=== PATIENT | female | born 2000 | race Caucasian/White ===

== ENCOUNTER 2019-10-31 02:30 | Inpatient (IN) | payer OTHER ==
[~2019-10-31 02:30] MED LIST: DEXTROSE 5%-LACTATED RINGERS 1,000 ML IV SCH
[2019-10-31] MEDS ORDERED: AMPICILLIN - 2 GM in SODIUM CHLORIDE 100 ML IVPB ONE (03:00)
[2019-10-31] MEDS: ELECTROLYTE-148 SOLN 1,000 ML IV SCH ×2 (03:10→09:15)
[2019-10-31 04:19] LABS: BASO % 0.5 % (0-2.0); HEMATOCRIT 36.7 % (32.4-45.2); HEMOGLOBIN 12.4 GM/dL (10.7-15.3); LYMPH % 17.2 % (8-40); MCHC 33.8 g/dl (32.0-36.0); MEAN CELL VOLUME 97.6 fl (80-96); MEAN PLT VOLUME 9.9 fl (7.5-11.1); MONO % 7.3 % (3.8-10.2); PLATELET COUNT 182 K/MM3 (134-434); RBC 3.77 M/mm3 (3.60-5.2); WHITE BLOOD COUNT 10.4 K/mm3 (4.0-10.0)
[2019-10-31 04:25] LABS: INR 0.92 (0.83-1.09); PROTHROMBIN TIME (PATIENT) 10.9 SEC (9.7-13.0)
[2019-10-31 04:36] LABS: BLOOD UREA NITROGEN 10.2 mg/dL (7-18); CALCIUM 8.9 mg/dL (8.5-10.1); CREATININE 0.4 mg/dL (0.55-1.3); POTASSIUM 5.4 mmol/L (3.5-5.1)
[2019-10-31] MEDS ORDERED: AMPICILLIN SODIUM 2 GM VIAL ONE (05:54)
[2019-10-31 06:05] LABS: PLATELET ESTIMATE ADEQUATE
[2019-10-31 06:13] VITALS: BMI 28.3
[2019-10-31] MEDS ORDERED: AMPICILLIN - 1 GM in SODIUM CHLORIDE 100 ML IVPB SCH (07:00)
[2019-10-31] MEDS ORDERED: BUTORPHANOL TARTRATE 2 MG/ML VIAL IVPB ONE (07:30)
[2019-10-31] MEDS ORDERED: PROMETHAZINE HCL 25 MG/1 ML VIAL IVPB ONE (07:30)
[2019-10-31] MEDS ORDERED: BUTORPHANOL TARTRATE 1 MG/ML VIAL ONE ×2 (08:10→08:11)
[2019-10-31] MEDS ORDERED: PROMETHAZINE HCL 25 MG/1 ML VIAL ONE (08:12)
[2019-10-31] MEDS ORDERED: OXYTOCIN 30 UNITS in 0.9% NS 30 UNIT/500 ML INFUS.BAG IVPB ONE (08:33)
[2019-10-31] MEDS: OXYTOCIN 30 UNITS in 0.9% NS 30 UNIT/500 ML INFUS.BAG IVPB SCH (08:40)
--- NOTE | 2019-10-31 08:42 | CONSULT ---
Past Medical History, Laborist - Primary Care Physician PCP:: Nitesh Lanier - Admission Chief Complaint: PROM. Early labor. History of Present Illness: PROM at 1 am. Some ctx. Was 1 cm. on admission. First baby. Just got Stadol. Needs augmentation. History Source: Patient, Family Member Limitations to Obtaining History: Language Barrier - Past Medical History SPANISH SPEAKING NANNY: Denies/None Cardio/Vascular: Denies/None Pulmonary: Denies/None Gastrointestinal: Denies/None Hepatobiliary: Denies/None Renal/: Denies/None Reproductive: Denies/None ...: 1 ...Para: 0 ...EDC by Sono: 10/31/19 Heme/Onc: Denies/None Infectious Disease: Denies/None Psych: Denies/None Musculoskeletal: Denies/None Rheumatology: Denies/None ENT: Denies/None Endocrine: Denies/None Dermatology: Denies/None - Past Surgical History Past Surgical History: Yes: None - Smoking History Smoking history: Never smoked Have you smoked in the past 12 months: No - Alcohol/Substance Use Hx Alcohol Use: No - Social History Usual Living Arrangement: With Significant Other Review of Systems - Review of Systems Constitutional: denies: No Symptoms, Chills, Diaphoresis, Fever, Lethargy, Loss of Appetite, Malaise, Night Sweats, Unintentional Wgt. Loss, Weakness, Other Eyes: denies: No Symptoms, Blind Spots, Blurred Vision, Double Vision, Eye Pain , Floaters, Photophobia, Recent Change in Vision, Other HENT: denies: No Symptoms, Difficult Swallowing, Ear Discharge, Ear Pain, Epistaxis, Gingival Bleeding, Hearing Loss, Mouth Swelling, Nasal Congestion, Ocular Prosthesis, Throat Pain, Toothache, Ringing in Ears, Other Neck: denies: No Symptoms, Decreased ROM, Lumps, Pain on Movement, Stiffness, Swollen Glands, Tenderness, Other Cardiovascular: denies: No Symptoms, Chest Pain, Edema, Palpitations, Shortness of Breath, Other Respiratory: denies: No Symptoms, Cough, Exercise Intolerance, Hemoptysis, Orthopnea, PND, Snoring, SOB, SOB on Exertion, Wheezing, Other Gastrointestinal: denies: No Symptoms, Abdominal Pain, Bloating, Constipation, Diarrhea, Dysphagia, Indigestion, Melena, Nausea, Rectal Bleeding, Vomiting, Vomiting Blood, Other Genitourinary: denies: No Symptoms, Burning, Discharge, Dysuria, Flank Pain, Frequency, Hematuria, Incontinence, Lesions, Menses, Pain, Testicular Mass, Testicular Pain, Testicular Swelling, Urgency, Vaginal Bleeding, Other Breasts: denies: No Symptoms Reported, See HPI, Breast Implants, Discharge from Nipple, Lumps, Pain, Skin Changes, Other Musculoskeletal: denies: No Symptoms, Back Pain, Crepitus, Decreased ROM, Extremity Pain, Joint Pain, Joint Swelling, Muscle Pain, Muscle Cramps, Muscle Weakness, Other Neurological: denies: No Symptoms, Change in LOC, Change in Speech, Confusion, Dizziness, Headache, Incoordination, Numbness, Parasthesia, Pre-Existing Deficit , Seizure, Syncope, Tremors, Unsteady Gait, Weakness, Other Endocrine: denies: No Symptoms, Excessive Sweating, Flushing, Increased Hunger, Increased Thirst, Intolerance to Cold, Intolerance to Heat, Unexplained Weight Gain, Unexplained Weight Loss, Other Hematology/Lymphatic: denies: No Symptoms, Easily Bruised, Excessive Bleeding, Swollen Glands, Other Psychiatric: denies: No Symptoms, Altered Sleep Pattern, Anxiety, Depression, Hallucinations, Panic, Paranoia, Suicidal, Other Physical Exam - Maternity Vital Signs: Vital Signs Temperature 97.9 F 10/31/19 08:00 Pulse Rate 86 10/31/19 08:00 Respiratory Rate 18 10/31/19 08:00 Blood Pressure 127/75 10/31/19 08:00 O2 Sat by Pulse Oximetry (%) Constitutional: Yes: Well Nourished, No Distress, Calm Eyes: Yes: WNL, Conjunctiva Clear, EOM Intact HENT: Yes: WNL, Atraumatic, Normocephalic Neck: Yes: WNL, Supple, Trachea Midline Cardiovascular: Yes: WNL, Regular Rate and Rhythm Breast(s): Yes: WNL - Abdominal Exam/OB Fundal Height: 38 Number of Fetuses: Single Presentation: Vertex Contractions: Yes Regularity: Irregular Intensity: Mild/Mod Monitor Mode: External Heart Rate Location: [facility] Category: I Accelerations: Uniform - Vaginal Exam/OB Vaginal Bleediing: No Speculum Exam: No Dilatation (cm): 3-4 Effacement (%): 50 Amniotic Membrane Status: Ruptured Amniotic Fluid: Yes: Clear Presentation: Vertex/Position Station: -2 - Physical Exam Edema: No - Labs Lab Results: CBC, BMP 10/31/19 03:35 10/31/19 00:35 Problem List - Problems (1) Term Code(s): Z34.90 - ENCNTR FOR SUPRVSN OF NORMAL , UNSP, UNSP TRIMESTER (2) PROM (premature rupture of membranes) Code(s): O42.90 - MUSTAPHA ROM, 7TH0 BETW RUPT & ONST LABR, UNSP WEEKS OF GEST Assessment/Plan at term. 40w 0d. PROM. GBS pos., on Ampicillin prophylaxis. Mild, irregular ctx. Needs augmentation. Explained to the pt and family. Will start Pitocin.
[2019-10-31] MEDS ORDERED: AMPICILLIN SODIUM 1 GM VIAL ONE ×3 (09:54→17:57)
[2019-10-31] MEDS: AMPICILLIN - 1 GM in SODIUM CHLORIDE 100 ML IVPB SCH ×3 (10:00→18:00)
[2019-10-31] MEDS ORDERED: FENTANYL/BUPIVACAINE/NS/PF - PCEA - 50 ML DISP.SYRIN EP ONE ×3 (10:47→19:54)
--- NOTE | 2019-10-31 10:51 | PN ---
Progress Note, Labor Vaginal Exam #2 Labor Exam Date: 10/31/19 Dilatation: 4-5 Effacement (%): 50 Station: -2 Remarks: Epidural requested, explained.
[2019-10-31 12:16] LABS: POC NITRAZINE POS
[2019-10-31] MEDS ORDERED: NALOXONE HCL 0.4 MG/ML VIAL IVPUSH PRN (12:56)
[2019-10-31] MEDS ORDERED: FENTANYL/BUPIVACAINE/NS/PF - PCEA - 50 ML DISP.SYRIN EP SCH (13:00)
[2019-10-31] MEDS: FENTANYL/BUPIVACAINE/NS/PF - PCEA - 50 ML DISP.SYRIN EP SCH (14:19)
[2019-10-31] MEDS ORDERED: BUPIVACAINE HCL/PF 2.5 MG/ML - 30 ML VIAL IJ ONE (15:17)
--- NOTE | 2019-10-31 17:16 | HP ---
Past Medical History - Admission Chief Complaint: srom in labor History of Present Illness: none History Source: Patient Limitations to Obtaining History: No Limitations - Past Medical History HOROLOGIST: No: Alzheimer's, CVA, Dementia, Migraine, Multiple Sclerosis, Peripheral Neuropathy, Parkinson's, Seizure, Syncope, TIA, Vertigo, Other Cardiovascular: No: AFIB, Aneurysm, Aortic Insufficiency, Aortic Stenosis, CAD, CHF, Deep Vein Thrombosis, HTN, Hyperlipdemia, ND, Mitral Insufficiency, Mitral Stenosis, Murmur, Pulmonary Hypertension, Other Pulmonary: No: Asthma, Bronchitis, Cancer, COPD, O2 Dependent, Pneumonia, Previously Intubated, Pulmonary Embolus, Pulmonary Fibrosis, Sleep Apnea, Other Gastrointestinal: No: Ascites, Cancer, Constipation, Crohn's Disease, Diverticulitis, Diverticulosis, Esophageal Varices, Gastritis, GERD, GI Bleed, Hemorrhoids, Hiatal Hernia, Inflamatory Bowel Disease, Irritable Bowel Disease, Pancreatitis, Peptic Ulcer Disease, Ulcerative Colitis, Other Renal/: No: Renal Failure, Renal Inusuff, BPH, Cancer, Hematuria, Hemodialysis , Neurogenic Bladder, Renal Calculi, UTI, Other Reproductive: No: Ectopic , Endometriosis, Fibroids, PID, Polycystic Ovary Syndrome, Postmenopausal, Other ...: 1 ...Para: 0 ... Weeks Gestation by Dates: 40 ...EDC by Sasha: 10/31/19 Heme/Onc: No: Anemia, B12 Deficiency, Bleeding Disorder, Cancer, Current Chemotherapy, Current Radiation Therapy, Hemochromatosis, Hypercoaguable State, Myeloproliferative Synd, Sickle Cell Disease, Sickle Cell Trait, Thrombocytopenia, Other Infectious Disease: No: AIDS, C-Diff, Herpes Zoster, HIV, MRSA, STD's, Tuberculosis, VREF, Other Psych: No: Addictions, Anxiety, Bipolar, Depression, Panic, Psychosis, Schizophrenia, Other Musculoskeletal: No: Bursitis, Chronic low back pain, Hemiparesis, Hemiplegia, Osteoarthritis, Paraplegia, Other Rheumatology: No: Fibromyalgia, Gout, Lupus, Rheumatoid Arthritis, Sarcoidosis, Vasculitis, Other ENT: No: Allergic Rhinitis, Sinusitis, Other Endocrine: No: Andrew's Disease, Oglesby's Disease, Diabetes Insipidus, Diabetes Mellitus, Hyperparathyroidism, Hyperthyroidism, Hypothyroidism, Osteopenia, SIADH, Other Dermatology: No: Basal Cell, Cellulitis, Eczema, Melanoma, Psoriasis, Squamous Cell, Other - Past Surgical History Past Surgical History: Yes: None. No: AAA Repair, AICD, Amputation, Appendectomy, Arthrosocopy, AV Fistula/Graft, Bariatric Surgery, Breast Biopsy, Bypass, CABG, Carotid Endarterectomy, Cataract Removal, Cholecystectomy, Colectomy, Colonoscopy, Colostomy, Craniotomy, , Cystectomy, Hernia Repair, Hysterectomy, Ileal Conduit, Ileosotomy, Joint Replacement, Kidney Transplant, Laminectomy, Liver Transplant, Mastectomy, Nephrectomy, Oopherectomy , Orchiectomy, Permanent Pacemaker, Prostatectomy, Splenectomy, Stent, Thoracotomy, TURP, Tonsillectomy, Tubal Ligation, Upper Endoscopy, Valve Replacement, Vasectomy, Vein Stripping/Ligation Hx Myomectomy: No Hx Transabdominal Cerclage: No - Advance Directives Advance Directives: Yes: Living Will - Smoking History Smoking history: Never smoked Have you smoked in the past 12 months: No - Alcohol/Substance Use Hx Alcohol Use: No History of Substance Use: reports: None - Social History Usual Living Arrangement: Yes: With Significant Other Do you think of yourself as: Straight/Heterosexual ADL: Independent History of Recent Travel: No Home Medications - Allergies Allergies/Adverse Reactions: Allergies Allergy/AdvReac Type Severity Reaction Status Date / Time No Known Allergies Allergy Verified 10/31/19 04:02 - Home Medications Home Medications: Ambulatory Orders Pnv No.95/Ferrous Fum/Folic AC [ Vitamin Tablet] 1 each PO DAILY Family Medical History Family History: Denies Review of Systems - Review of Systems Constitutional: reports: No Symptoms Eyes: reports: No Symptoms HENT: reports: No Symptoms Neck: reports: No Symptoms Cardiovascular: reports: No Symptoms Respiratory: reports: No Symptoms Gastrointestinal: reports: No Symptoms Genitourinary: reports: No Symptoms Breasts: reports: No Symptoms Reported Musculoskeletal: reports: No Symptoms Integumentary: reports: No Symptoms Neurological: reports: No Symptoms Endocrine: reports: No Symptoms Hematology/Lymphatic: reports: No Symptoms Psychiatric: reports: No Symptoms Physical Exam - Maternity Vital Signs: Vital Signs Temperature 97.8 F 10/31/19 11:00 Pulse Rate 105 H 10/31/19 16:45 Respiratory Rate 20 10/31/19 16:45 Blood Pressure 130/71 10/31/19 16:45 O2 Sat by Pulse Oximetry (%) 97 10/31/19 16:45 Constitutional: Yes: Well Nourished, No Distress, Calm Eyes: Yes: WNL, Conjunctiva Clear, EOM Intact HENT: Yes: WNL, Atraumatic, Normocephalic Neck: Yes: WNL, Supple, Trachea Midline Cardiovascular: Yes: WNL, Regular Rate and Rhythm Lungs: Clear to auscultation Breast(s): Yes: WNL - Abdominal Exam/OB Fundal Height: 40 Number of Fetuses: Single Presentation: Vertex Contractions: Yes Regularity: Irregular Intensity: Mild Monitor Mode: External Heart Rate Location: [place] Category: I Accelerations: Uniform - Vaginal Exam/OB Vaginal Bleediing: No Speculum Exam: No Dilatation (cm): 1 Effacement (%): 50 Amniotic Membrane Status: Ruptured Amniotic Fluid: Yes: Clear Presentation: Vertex/Position Station: -2 - Physical Exam Musculoskeletal: Yes: WNL Extremities: Yes: WNL Edema: Yes Edema: LUE: 1+, RUE: 1+, LLE: 1+, RLE: 1+ Integumentary: Yes: WNL Deep Tendon Reflex Grade: Normal +2 ...Motor Strength: WNL Psychiatric: Yes: WNL, Alert, Oriented - Labs Lab Results: CBC, BMP 10/31/19 03:35 10/31/19 00:35 Assessment/Plan for laboring, will try pitocin
--- NOTE | 2019-10-31 17:17 | PN ---
Progress Note (short form) - Note Progress Note: 12 noon 5 cm, -2, 50 %, epidural in, comfortable, nst reactive, uc q 5min
--- NOTE | 2019-10-31 17:18 | PN ---
Progress Note (short form) - Note Progress Note: 2pm ,nst cat 1, uc q 3 min, comfot w epidural, 5 -6 cm, -2, 70%, continue pitocin
--- NOTE | 2019-10-31 17:20 | PN ---
Progress Note (short form) - Note Progress Note: 5pm, 7to 8 cm, -1, 80%, recoverable variable deccel and confortable w epidural
--- NOTE | 2019-10-31 17:20 | PN ---
Progress Note (short form) - Note Progress Note: 330 pm nst cat 1, uc q 3 min, continue pitocin, comfortable w epidural , 6 cm , 70%, -1
[2019-10-31] MEDS ORDERED: OXYTOCIN 20 UNITS in 0.9% NS 20 UNIT/1,000 ML INFUS.BAG IV ONE (19:19)
[2019-10-31] MEDS ORDERED: LIDOCAINE HCL 1% PRESERVATIVE FREE - 30ML VIAL ONE (19:19)
[2019-10-31] MEDS ORDERED: CITRIC ACID/SODIUM CITRATE 30 ML UNIT-DOSE CUP PO ONE (20:14)
--- NOTE | 2019-10-31 20:16 | PN ---
Progress Note (short form) - Note Progress Note: 815 pm, poor pushing effort, still 0 station, no decend at all, pt refuse to push now , requests c section
[2019-10-31] MEDS ORDERED: morphine SULFATE/PF 0.5 MG/ML (2cc Syringe - QUVA) ONE (20:41)
[2019-10-31] MEDS ORDERED: PHENYLEPHRINE HCL 10 MG/1 ML SINGLE DOSE VIAL ONE (20:41)
[2019-10-31] MEDS ORDERED: ePHEDrine SULFATE 50 MG/1 ML AMPULE ONE (20:41)
[2019-10-31] MEDS ORDERED: ceFAZolin SODIUM 1 GM VIAL ONE (20:53)
[2019-10-31] MEDS ORDERED: OXYTOCIN 10 UNITS/ML VIAL ONE (21:04)
[2019-10-31] MEDS ORDERED: SODIUM CHLORIDE 0.9% P/F 10 ML VIAL IJ ONE (21:27)
[2019-10-31] MEDS ORDERED: KETOROLAC TROMETHAMINE 30 MG/1 ML VIAL ONE ×2 (21:30→21:47)
[2019-10-31] MEDS ORDERED: DEXAMETHASONE SOD PHOSPHATE 4 MG/1 ML VIAL ONE (21:30)
--- NOTE | 2019-10-31 21:38 | PN ---
Progress Note (short form) - Note Progress Note: I assisted Dr. Lanier at c/section for the entirety of the case. Problem List - Problems (1) Term Code(s): Z34.90 - ENCNTR FOR SUPRVSN OF NORMAL , UNSP, UNSP TRIMESTER (2) PROM (premature rupture of membranes) Code(s): O42.90 - MUSTAPHA ROM, 7TH0 BETW RUPT & ONST LABR, UNSP WEEKS OF GEST
[2019-10-31] MEDS ORDERED: METHYLERGONOVINE MALEATE 0.2 MG/1 ML AMP IM PRN (21:56)
[2019-10-31] MEDS ORDERED: IBUPROFEN 600 MG TABLET (FP) PO PRN (21:56)
[2019-10-31] MEDS ORDERED: IBUPROFEN 800 MG/8 ML IJ IVPB PRN (21:56)
[2019-10-31] MEDS ORDERED: SENNOSIDES/DOCUSATE COMBO (SENNA PLUS) TABLET (UD) PO PRN (21:56)
[2019-10-31] MEDS ORDERED: ACETAMINOPHEN 325 MG TABLET (FP) PO PRN ×2 (21:56→22:02)
[2019-10-31] MEDS ORDERED: oxyCODONE HCL 5 MG TABLET PO PRN (21:56)
[2019-10-31] MEDS ORDERED: OXYTOCIN 20 UNITS in 0.9% NS 20 UNIT/1,000 ML INFUS.BAG IV SCH (22:00)
[2019-10-31] MEDS ORDERED: ONDANSETRON 4 MG/2 ML VIAL IVPUSH PRN (22:02)
[2019-10-31] MEDS ORDERED: morphine SULFATE/PF 0.5 MG/ML (2cc Syringe - QUVA) SPIN ONE (22:02)
--- NOTE | 2019-10-31 22:04 | OP ---
Operative Note - Note: Operative Date: 10/31/19 Pre-Operative Diagnosis: failure to deccend Operation: primary lt c s Findings: op, Post-Operative Diagnosis: Same as Pre-op Surgeon: Nitesh Lanier Composite Mechanic: Juan Luis Carr Anesthesiologist/BOILER OPERATOR: Breanne Sparks Anesthesia: Spinal Estimated Blood Loss (mls): 500 (op, no complications ) Operative Report Dictated: Yes
[2019-11-01] MEDS: AMPICILLIN - 1 GM in SODIUM CHLORIDE 100 ML IVPB SCH ×3 (00:16→06:21)
--- NOTE | 2019-11-01 08:19 | PN ---
Progress Note, Physician Chief Complaint: s/p c section under spinal anesthesia History of Present Illness: post op day one, duramorph for post op pain control - Current Medication List Current Medications: Active Medications Acetaminophen (Tylenol -) 650 mg PO Q4H PRN PRN Reason: FEVER Acetaminophen (Tylenol -) 650 mg PO Q4H PRN PRN Reason: PAIN LEVEL 4 - 6 Bisacodyl (Dulcolax Suppository -) 10 mg RC PRN PRN PRN Reason: CONSTIPATION Diphenhydramine HCl (Benadryl Injection -) 25 mg IVPUSH Q4H PRN PRN Reason: Pruritis Diphtheria/Tetanus/Acell Pertussis (Boostrix -) 0.5 ml IM .ONCE ONE Stop: 11/02/19 10:01 Enoxaparin Sodium (Lovenox -) 40 mg SQ DAILY [facility] Fentanyl/Bupivacaine/Sodium Chlor (Bupivicaine 0.125%/Fentanyl 2mcg/Ml Pcea) 50 ml EP ASDIR [facility]; Protocol Last Admin: 10/31/19 14:19 Dose: Not Given Ampicillin Sodium 1 gm/ Sodium (Chloride) 100 mls @ 200 mls/hr IVPB Q4H YAJAIRA Stop: 11/01/19 09:59 Last Admin: 11/01/19 06:21 Dose: Not Given Oxytocin/Sodium Chloride (Normal Saline+30 Units Oxytocin) 30 unit in 500 mls @ 1 mls/hr IVPB TITR [facility]; Protocol Last Titration: 10/31/19 20:05 Dose: 0 unit/hr, 0 mls/hr Parenteral Electrolytes (Plasma-Lyte 148 -) 1,000 mls @ 125 mls/hr IV ASDIR [facility] Last Admin: 10/31/19 09:15 Dose: 125 mls/hr Oxytocin/Sodium Chloride (Normal Saline+20 Units Oxytocin -) 20 unit in 1,000 mls @ 125 mls/hr IV ASDIR [facility] Last Admin: 11/01/19 05:05 Dose: 125 mls/hr Ibuprofen (Caldolor Injection -) 800 mg IVPB Q8H PRN PRN Reason: PAIN LEVEL 6-10 Last Admin: 11/01/19 05:05 Dose: 800 mg Ibuprofen (Motrin -) 600 mg PO Q4H PRN PRN Reason: PAIN LEVEL 6-10 Influenza Virus Vaccine Quadrival (Flulaval Quad [id number]) 60 mcg IM .ONCE ONE Stop: 11/02/19 10:01 Methylergonovine Maleate (Methergine Injection -) 0.2 mg IM Q4H PRN PRN Reason: Excessive Bleeding (L&D) Last Admin: 11/01/19 06:35 Dose: 0.2 mg Naloxone HCl (Narcan -) 0.4 mg IVPUSH PRN PRN PRN Reason: Sedation Ondansetron HCl (Zofran Injection) 4 mg IVPUSH Q4H PRN PRN Reason: NAUSEA Oxycodone HCl (Roxicodone -) 5 mg PO Q4H PRN PRN Reason: PAIN LEVEL 4 - 6 Oxycodone HCl (Roxicodone -) 10 mg PO Q4H PRN PRN Reason: PAIN LEVEL 7 - 10 Senna/Docusate Sodium (Pericolace -) 2 tablet PO HS PRN PRN Reason: CONSTIPATION Simethicone (Mylicon -) 80 mg PO Q4H PRN PRN Reason: GAS - Objective Vital Signs: Vital Signs Temperature 98.1 F 11/01/19 06:00 Pulse Rate 83 11/01/19 06:00 Respiratory Rate 20 11/01/19 06:00 Blood Pressure 116/74 11/01/19 06:00 O2 Sat by Pulse Oximetry (%) 96 10/31/19 23:00 Constitutional: Yes: Well Nourished Cardiovascular: Yes: WNL Respiratory: Yes: WNL Gastrointestinal: Yes: WNL Labs: CBC, BMP 10/31/19 03:35 10/31/19 00:35 INR, PTT INR 0.92 (0.83-1.09) 10/31/19 00:35 Assessment/Plan No acute issues, dept of anesthesia will sign off care at this time.
[2019-11-01 09:11] LABS: BASO % 0.2 % (0-2.0); EOS % 0.3 % (0-4.5); HEMATOCRIT 32.2 % (32.4-45.2); MCH 32.8 pg (25.7-33.7); MCHC 34.2 g/dl (32.0-36.0); MEAN CELL VOLUME 95.9 fl (80-96); MEAN PLT VOLUME 9.1 fl (7.5-11.1); MONO % 6.2 % (3.8-10.2); NEUT % 81.3 % (42.8-82.8); PLATELET COUNT 165 K/MM3 (134-434); RBC 3.36 M/mm3 (3.60-5.2); WHITE BLOOD COUNT 14.1 K/mm3 (4.0-10.0)
[2019-11-01] MEDS: ENOXAPARIN NA (PORCINE) 40 MG/0.4 ML DISP.SYRIN SQ SCH (10:51)
[2019-11-01] MEDS: oxyCODONE HCL 5 MG TABLET PO PRN (18:30)
[2019-11-01] MEDS: SIMETHICONE 80 MG TAB.CHEW (FP) PO PRN (18:31)
[2019-11-01] MEDS: ELECTROLYTE-148 SOLN 1,000 ML IV SCH (20:01)
[2019-11-01] MEDS: OXYTOCIN 30 UNITS in 0.9% NS 30 UNIT/500 ML INFUS.BAG IVPB SCH (20:01)
--- NOTE | 2019-11-01 20:01 | PN ---
Post Progress Note Post Day: 1 Type of Delivery: Primary C/S Vital Signs: Vital Signs Temperature 97.5 F L 11/01/19 16:56 Pulse Rate 93 H 11/01/19 16:56 Respiratory Rate 18 11/01/19 18:00 Blood Pressure 122/72 11/01/19 16:56 O2 Sat by Pulse Oximetry (%) 96 10/31/19 23:00 Breast Exam: Yes: Soft Uterus: Yes: Fundus Firm, Fundus below umbilicus, Non-tender Incision: Yes: Dressing dry and intact, Sutures intact Abdomen/GI: Yes: Abdomen soft, Passing flatus, Tolerating PO Lochia: Yes: Serosa Lochia, amount: Small Extremities: Yes: Calves non-tender Perineum: Yes: Intact Activity: Ambulating - Labs Labs: CBC WBC 14.1 K/mm3 (4.0-10.0) H 11/01/19 08:53 RBC 3.36 M/mm3 (3.60-5.2) L 11/01/19 08:53 Hgb 11.0 GM/dL (10.7-15.3) 11/01/19 08:53 Hct 32.2 % (32.4-45.2) L 11/01/19 08:53 MCV 95.9 fl (80-96) 11/01/19 08:53 MCH 32.8 pg (25.7-33.7) 11/01/19 08:53 MCHC 34.2 g/dl (32.0-36.0) 11/01/19 08:53 RDW 13.0 % (11.6-15.6) 11/01/19 08:53 Plt Count 165 K/MM3 (134-434) 11/01/19 08:53 MPV 9.1 fl (7.5-11.1) 11/01/19 08:53 Absolute Neuts (auto) 11.5 K/mm3 (1.5-8.0) H 11/01/19 08:53 Neutrophils % 81.3 % (42.8-82.8) 11/01/19 08:53 Lymphocytes % 12.0 % (8-40) D 11/01/19 08:53 Monocytes % 6.2 % (3.8-10.2) 11/01/19 08:53 Eosinophils % 0.3 % (0-4.5) D 11/01/19 08:53 Basophils % 0.2 % (0-2.0) 11/01/19 08:53 Nucleated RBC % 0 % (0-0) 11/01/19 08:53 Platelet Estimate Adequate 10/31/19 03:35 Platelet Comment No clumping noted 10/31/19 03:35 Assessment/Plan oob as much as possible
[2019-11-01] MEDS: FENTANYL/BUPIVACAINE/NS/PF - PCEA - 50 ML DISP.SYRIN EP SCH (20:02)
[2019-11-01] MEDS ORDERED: BISACODYL 10 MG SUPP.RECT RC PRN (21:56)
[2019-11-02] MEDS: SIMETHICONE 80 MG TAB.CHEW (FP) PO PRN ×2 (01:41→19:43)
[2019-11-02] MEDS: IBUPROFEN 600 MG TABLET (FP) PO PRN ×3 (01:41→19:44)
[2019-11-02] MEDS: oxyCODONE HCL 5 MG TABLET PO PRN ×3 (01:42→19:43)
--- NOTE | 2019-11-02 06:29 | OP ---
DATE OF OPERATION: 10/31/2019 PREOPERATIVE DIAGNOSIS: Failure to descend. POSTOPERATIVE DIAGNOSIS: Failure to descend. PROCEDURE: Primary low transverse section. SURGEON: Nitesh Lanier MD CRUSHER MACHINE OPERATOR: Juan Luis Carr MD ANESTHESIA: Epidural anesthesia and spinal anesthesia with GERALDINE Jordan BLOOD LOSS: About 500 mL. PATHOLOGY: Placenta. INDICATION: This is a 19-year-old female patient 40 weeks came into the hospital in spontaneous rupture of membrane around 4:00 and patient was admitted and patient went through the labor process and patient had an augmentation around 7:30 or 8:00. Patient had Pitocin and patient received epidural and Stadol throughout the labor process all day until about 6:30, 7:00. Patient was fully dilated and the patient was encouraged to push and the epidural was titrated down and the patient's epidural also was not working very well and the patient was pushing from 7:15 until around 8:00, 8:30 and patient refused to push any more after 1 hour and patient had poor pushing effort. There was no movement of the baby's descent at all and patient is [place] and patient does not believe in vaginal delivery at this point and refused to push any more so decision was made to taking the patient to the OR for primary low transverse section. DESCRIPTION OF PROCEDURE: So patient was taken to the OR and patient's epidural was not working well so spinal anesthesia was redone and the patient was comfortable and the patient was placed on the operating table in the supine position. Patient's abdomen and pelvis were prepped and draped in the usual sterile manner. Pfannenstiel incision was made. Incision was made through skin and subcutaneous tissue until the fascia was nicked in the midline. Fascia extended bilaterally. Intraperitoneal cavity was entered. Bladder flap was now created. Low transverse segment was entered. Baby delivered from OP presentation. Baby was then delivered to on site nurse after umbilical cord doubly clamped and cut. Cord blood gas obtained. Placenta was removed. Uterus was closed in single layer, 1st layer interlocking Vicryl sutures. Good hemostasis. Both gutters were cleaned. Both ovaries, fallopian tubes, uterus were within normal limits. No complication. Patient tolerated her procedure well. Bladder flap was closed. Blood loss about 500 mL and draining clear urine and the peritoneum was closed. Fascia was closed. Skin was closed. Transferred to the recovery room in stable condition. MD DOTTIE GARCIA/[id number]
[2019-11-02] MEDS: ENOXAPARIN NA (PORCINE) 40 MG/0.4 ML DISP.SYRIN SQ SCH (09:17)
--- NOTE | 2019-11-02 09:58 | PN ---
Post Progress Note Post Day: 2 Type of Delivery: Primary C/S Vital Signs: Vital Signs Temperature 97.5 F L 11/01/19 20:30 Pulse Rate 107 H 11/01/19 20:30 Respiratory Rate 20 11/01/19 20:30 Blood Pressure 115/59 L 11/01/19 20:30 O2 Sat by Pulse Oximetry (%) 96 10/31/19 23:00 Breast Exam: Yes: Soft Uterus: Yes: Fundus Firm, Fundus below umbilicus Incision: Yes: Dressing dry and intact, Sutures intact Abdomen/GI: Yes: Abdomen soft, Passing flatus, Tolerating PO Lochia: Yes: Serosa Lochia, amount: Small Extremities: Yes: Calves non-tender Perineum: Yes: Intact Activity: Ambulating - Labs Labs: CBC WBC 14.1 K/mm3 (4.0-10.0) H 11/01/19 08:53 RBC 3.36 M/mm3 (3.60-5.2) L 11/01/19 08:53 Hgb 11.0 GM/dL (10.7-15.3) 11/01/19 08:53 Hct 32.2 % (32.4-45.2) L 11/01/19 08:53 MCV 95.9 fl (80-96) 11/01/19 08:53 MCH 32.8 pg (25.7-33.7) 11/01/19 08:53 MCHC 34.2 g/dl (32.0-36.0) 11/01/19 08:53 RDW 13.0 % (11.6-15.6) 11/01/19 08:53 Plt Count 165 K/MM3 (134-434) 11/01/19 08:53 MPV 9.1 fl (7.5-11.1) 11/01/19 08:53 Absolute Neuts (auto) 11.5 K/mm3 (1.5-8.0) H 11/01/19 08:53 Neutrophils % 81.3 % (42.8-82.8) 11/01/19 08:53 Lymphocytes % 12.0 % (8-40) D 11/01/19 08:53 Monocytes % 6.2 % (3.8-10.2) 11/01/19 08:53 Eosinophils % 0.3 % (0-4.5) D 11/01/19 08:53 Basophils % 0.2 % (0-2.0) 11/01/19 08:53 Nucleated RBC % 0 % (0-0) 11/01/19 08:53 Platelet Estimate Adequate 10/31/19 03:35 Platelet Comment No clumping noted 10/31/19 03:35 Assessment/Plan doing well, dc pt home tomorrow
[2019-11-02] MEDS ORDERED: FLU VACCINE QUAD 60 MCG/0.5 ML (MDV 19-20) IM ONE (10:00)
[2019-11-02] MEDS ORDERED: DIPHTH,PERTUSS(ACELL),TET 0.5 ML DISP.SYRIN IM ONE (10:00)
[2019-11-02] MEDS ORDERED: FLU VACC QS2019-20(6MOS UP)/PF 60 MCG/0.5 ML SYRINGE IM ONE (10:00)
--- NOTE | 2019-11-02 20:25 | DS ---
Physical Exam-BOX MAKER Vital Signs: Vital Signs Temperature 97.5 F L 11/01/19 20:30 Pulse Rate 107 H 11/01/19 20:30 Respiratory Rate 20 11/01/19 20:30 Blood Pressure 115/59 L 11/01/19 20:30 O2 Sat by Pulse Oximetry (%) 96 10/31/19 23:00 Constitutional: Yes: Well Nourished, No Distress, Calm Eyes: Yes: WNL, Conjunctiva Clear, EOM Intact HENT: Yes: WNL, Atraumatic, Normocephalic Neck: Yes: WNL, Supple, Trachea Midline Cardiovascular: Yes: WNL, Regular Rate and Rhythm Respiratory: Yes: WNL, Regular, CTA Bilaterally Gastrointestinal: Yes: WNL, Normal Bowel Sounds, Soft ...Rectal Exam: Yes: WNL Renal/: Yes: WNL Pelvis: Yes: WNL External Genitalia: Yes: Normal Internal Exam Deferred: No Vaginal Exam: Yes: Normal Cervix: Yes: Normal Uterus: Yes: Normal Adnexa: Normal: Bilateral ....Post : Yes: Uterus firm, Uterus non-tender Breast(s): Yes: WNL Musculoskeletal: Yes: WNL Extremities: Yes: WNL Edema: Yes Edema: LUE: 1+, RUE: 1+, LLE: 1+, RLE: 1+ Integumentary: Yes: WNL Wound/Incision: Yes: Clean/Dry, Well Approximated Neurological: Yes: WNL, Alert, Oriented ...Motor Strength: WNL Psychiatric: Yes: WNL, Alert, Oriented Labs: CBC, BMP 11/01/19 08:53 10/31/19 00:35 Delivery - Delivery Type of Anesthesia: Epidural, Spinal Episiotomy/Laceration: None EBL (cc): 500 Delivery, Single - Stages of Labor Date 1st Stage Initiatied: 10/31/19 Time 1st Stage Initiated: 03:00 Date 2nd Stage Initiated: 10/31/19 Time 2nd Stage Initiated: 19:25 Date of Delivery: 10/31/19 Time of Delivery: 21:02 Time Placenta Delivered: 21:03 - Condition of Sheet Music Salesperson/Straw Hat Brim Raiser Operator Present: Yes Name: Randee Franks Infant Gender: Female Weight: 3.459 kg Position: OP Total Hours ROM (Hrs/Mins): 20hrs/3mins - 1 Minute Total Score: 9 5 Minutes Total Score: 9 - Feeding Plan Initial Plan: Elected not to breastfeed exclusively throughout hospitalization Discharge Summary Problems reviewed: Yes Reason For Visit: LABOR ADMIT Current Active Problems PROM (premature rupture of membranes) (Acute) Term (Acute) Procedures: Principal: primary lt c s Other Procedures: none Hospital Course: uneventful Health Concerns: none Plan of Treatment: oob as much as possible Goals: rt to work in 6 weeks Condition: Good - Instructions Diet, Activity, Other Instructions: regular , routine post care Disposition: HOME - Home Medications Comprehensive Discharge Medication List: Ambulatory Orders Pnv No.95/Ferrous Fum/Folic AC [ Vitamin Tablet] 1 each PO DAILY
[2019-11-03] MEDS: oxyCODONE HCL 5 MG TABLET PO PRN (07:56)
[2019-11-03] MEDS: IBUPROFEN 600 MG TABLET (FP) PO PRN (07:57)
[2019-11-03] MEDS: SIMETHICONE 80 MG TAB.CHEW (FP) PO PRN (07:57)
[2019-11-03] MEDS: ENOXAPARIN NA (PORCINE) 40 MG/0.4 ML DISP.SYRIN SQ SCH (11:33)
[2019-11-03 14:27] VITALS: BP 113/87; PULSE 90; TEMP 98.3
--- NOTE | 2019-11-04 18:30 | PATH ---
Surgical Pathology Report Patient Name: JANENE RIVERO [facility]. Rec. 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 TRIVASCULAR CORD. MEMBRANES WITH NO DIAGNOSTIC ABNORMALITIES. Electronically Signed Celia Peguero M.D. Gross Description The specimen is received fresh labeled placenta and is a 486 gram, 18.0 x 16.0 x 2.8 cm. placenta with attached membranes and umbilical cord. The attached membranes are acuna, translucent with focal opacities and insert marginally. The umbilical cord measures 26 cm. in length and averages 1.5 cm. in diameter. The cord inserts eccentrically, 3.5 cm. to the nearest margin. No true knots or strictures are identified. Cut surface of the umbilical cord reveals 3 vessels. The surface is maza-blue with minimal fibrin deposition and appropriate caliber vessels. The maternal surface is red-brown with focal defects. Sectioning reveals red-brown, spongy parenchyma. No lesions are identified. 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 11/03/2019 saudi11/03/2019
== END 2019-11-03 14:10 | disposition home or self-care (01) | DRG 540 ==
LOC: JLDR 02:30 → J3W 23:30
PROVIDERS: ADMIT Obstetrics & Gynecology; ATTEND Obstetrics & Gynecology
PROC: 10D00Z1 Extraction of Products of Conception, Low, Open Approach (ICD-10-PCS; principal; 2019-10-31)
DX: O48.0 Post-term pregnancy (principal); O42.92 Full-term premature rupture of membranes, unspecified as to length of time between rupture and onset of labor; O99.824 Streptococcus B carrier state complicating childbirth; O32.4XX0 Maternal care for high head at term, not applicable or unspecified; Z3A.40 40 weeks gestation of pregnancy; Z37.0 Single live birth
CPT/HCPCS: 36415; 80048; 83986-QW; 85025; 85610; 85730; 86593; 86850; 86900; 86901; 87389; 88307-TC; 90686; 90715